=== PATIENT | male | born 1970 | race African-American/Black ===

== ENCOUNTER 2020-06-10 13:16 | Observation (INO) ==
[2020-06-10 15:45] LABS: Bilirubin,Urine Negative (Negative); Blood, Urine Small mg/dL (Negative); Glucose,Urine (UA) >=500 mg/dL (Negative); Ketones,Urine Negative (Negative); Nitrite,Urine Negative (Negative); Protein,Urine Negative; Urine Appearance CLEAR (Clear); Urine Color Straw (Yellow); Urine Specific Gravity 1.021 (1.001-1.035); Urine Urobilinogen < 2.0 EU/DL (0.2-1.0); WBC,Urine 1 /HPF (0-6)
[2020-06-10 16:18] LABS: Basophils # 0.1 10*3/uL (0.0-0.2); Basophils % 0.5 % (0.0-0.8); Eosinophils # 0.1 10*3/uL (0.0-0.87); Eosinophils % 0.6 % (0.00-10.9); Hematocrit 39.6 VOL% (42.0-52.0); Hemoglobin 12.8 GM/DL (14.0-18.0); Immature Granulocytes % 4.6 %; Lymphocytes # 0.7 10*3/uL (1.4-4.0); Lymphocytes % 6.7 % (21.2-54.2); Mean Corpuscular HGB Conc 32.3 GM/DL (32-36); Mean Corpuscular Volume 84.8 FL (87-102); Mean Platelet Volume 12.7 FL (9.6-12.0); Monocytes % 10.8 % (1.7-12.7); Neutrophils % 76.8 % (38.7-73.9); Platelet Count 180 T/CUMM (130-400); Red Blood Count 4.67 MC/CUMM (3.8-5.5); Red Cell Distribution Width 13.1 % (9.3-17.3)
[2020-06-10 16:27] LABS: Alanine Aminotransferase 16 U/L (16-61); Albumin 3.9 G/DL (3.4-5.0); Alkaline Phosphatase 108 U/L (45-117); Aspartate Amino Transferase 10 U/L (0-37); Bilirubin,Total < 0.39 MG/DL (0.2-1.0); Blood Urea Nitrogen 49 MG/DL (7-18); Calcium 10.1 MG/DL (8.5-10.1); Estimated Glom Filtration Rate 28 ML/MIN; Glucose 373 MG/DL (74-106); Osmolality,Calculated 280.4 MOS/KG (273-304); Total Protein 7.3 G/DL (6.4-8.3)
[2020-06-10] MEDS ORDERED: SODIUM CHLORIDE 0.9% 1,000 ML IV STA (16:56)
[2020-06-10] MEDS ORDERED: DEXTROSE 50% 25 GM/50 ML VIAL IV PRN (17:21)
[2020-06-10] MEDS ORDERED: GLUCAGON 1 MG VIAL IM PRN (17:21)
[2020-06-10] MEDS ORDERED: ZOLPIDEM 5 MG TABLET PO PRN (21:00)
[2020-06-10] MEDS: SODIUM CHLORIDE 0.9% 1,000 ML IV SCH (21:23)
[2020-06-10] MEDS: MYCOPHENOLATE MOFETIL 250 MG CAPSULE PO SCH (21:24)
[2020-06-10] MEDS: TACROLIMUS 0.5 MG CAPSULE PO SCH (21:24)
[2020-06-10] MEDS: INSULIN GLARGINE 100 UNIT/ML SUBCUT SCH (21:26)
[2020-06-10] MEDS: INSULIN LISPRO 100 UNIT/ML SUBCUT SCH (21:26)
[2020-06-11 05:45] LABS: Basophils % 0.4 % (0.0-0.8); Eosinophils # 0.1 10*3/uL (0.0-0.87); Hemoglobin 11.7 GM/DL (14.0-18.0); Immature Granulocytes % 2.8 %; Immature Granulocytes Absolute 0.22 #; Lymphocytes # 0.7 10*3/uL (1.4-4.0); Lymphocytes % 8.5 % (21.2-54.2); Mean Corpuscular HGB Conc 31.6 GM/DL (32-36); Mean Corpuscular Volume 86.4 FL (87-102); Mean Platelet Volume 12.8 FL (9.6-12.0); Monocytes % 10.6 % (1.7-12.7); NRBC # 0.02 10*3/uL; Neutrophils % 76.7 % (38.7-73.9); Platelet Count 161 T/CUMM (130-400); Red Blood Count 4.28 MC/CUMM (3.8-5.5); Red Cell Distribution Width 13.2 % (9.3-17.3); White Blood Count 7.9 T/CUMM (4-12)
[2020-06-11 06:21] LABS: Albumin 3.1 G/DL (3.4-5.0); Bilirubin,Total 1.1 MG/DL (0.2-1.0); Calcium 9.5 MG/DL (8.5-10.1); Osmolality,Calculated 282.2 MOS/KG (273-304); Total Protein 6.5 G/DL (6.4-8.3)
[2020-06-11] MEDS: SODIUM BICARBONATE 650 MG TABLET PO SCH (08:17)
[2020-06-11] MEDS: predniSONE 10 MG TABLET PO SCH (08:17)
[2020-06-11] MEDS: ATORVASTATIN 10 MG TABLET PO SCH (08:17)
[2020-06-11] MEDS: MYCOPHENOLATE MOFETIL 250 MG CAPSULE PO SCH ×2 (08:17→21:18)
[2020-06-11] MEDS: TACROLIMUS 0.5 MG CAPSULE PO SCH ×2 (08:17→21:17)
[2020-06-11] MEDS: SODIUM CHLORIDE 0.9% 1,000 ML IV SCH ×3 (08:18→21:20)
[2020-06-11] MEDS: INSULIN LISPRO 100 UNIT/ML SUBCUT SCH ×9 (08:18→21:48)
[2020-06-11] MEDS: INSULIN GLARGINE 100 UNIT/ML SUBCUT SCH (21:49)
[2020-06-12 05:44] LABS: Basophils % 0.2 % (0.0-0.8); Eosinophils % 0.3 % (0.00-10.9); Hematocrit 34.8 VOL% (42.0-52.0); Hemoglobin 10.9 GM/DL (14.0-18.0); Immature Granulocytes % 1.5 %; Immature Granulocytes Absolute 0.15 #; Lymphocytes # 0.7 10*3/uL (1.4-4.0); Lymphocytes % 7.3 % (21.2-54.2); Mean Corpuscular HGB Conc 31.3 GM/DL (32-36); Mean Corpuscular Volume 87.7 FL (87-102); Mean Platelet Volume 12.5 FL (9.6-12.0); Monocytes % 8.7 % (1.7-12.7); Platelet Count 152 T/CUMM (130-400); Red Blood Count 3.97 MC/CUMM (3.8-5.5); Red Cell Distribution Width 13.5 % (9.3-17.3); White Blood Count 9.7 T/CUMM (4-12)
[2020-06-12 06:01] LABS: Calcium 8.7 MG/DL (8.5-10.1); Osmolality,Calculated 284.7 MOS/KG (273-304)
[2020-06-12] MEDS: MYCOPHENOLATE MOFETIL 250 MG CAPSULE PO SCH (10:10)
[2020-06-12] MEDS: predniSONE 10 MG TABLET PO SCH (10:11)
[2020-06-12] MEDS: TACROLIMUS 0.5 MG CAPSULE PO SCH (10:11)
[2020-06-12] MEDS: SODIUM BICARBONATE 650 MG TABLET PO SCH (10:11)
[2020-06-12] MEDS: ATORVASTATIN 10 MG TABLET PO SCH (10:11)
[2020-06-12] MEDS: INSULIN LISPRO 100 UNIT/ML SUBCUT SCH ×2 (10:22)
[2020-06-12 11:12] VITALS: BP 138/83
== END 2020-06-12 11:53 | disposition home or self-care (01) ==
LOC: N.ED 13:16 → OBSVTOIN 17:30 → INTOOBSV 17:30 → N.EDINP 17:30 → N.3E 17:57
PROVIDERS: ADMIT Internal Medicine; ATTEND Internal Medicine

== ENCOUNTER 2020-08-06 14:42 | Inpatient (IN) ==
[2020-08-06] MEDS ORDERED: SODIUM CHLORIDE 0.9% 1,000 ML IV STA (15:45)
[2020-08-06] MEDS ORDERED: ONDANSETRON 4 MG/2 ML VIAL IV STA ×2 (15:45→17:35)
[2020-08-06 16:29] LABS: Basophils % 0.1 % (0.0-0.8); Hemoglobin 12.3 GM/DL (14.0-18.0); Immature Granulocytes % 0.7 %; Immature Granulocytes Absolute 0.12 #; Lymphocytes # 0.2 10*3/uL (1.4-4.0); Mean Corpuscular HGB Conc 32.4 GM/DL (32-36); Mean Corpuscular Volume 85.4 FL (87-102); Mean Platelet Volume 12.3 FL (9.6-12.0); Monocytes % 2.6 % (1.7-12.7); Neutrophils % 95.6 % (38.7-73.9); Platelet Count 251 T/CUMM (130-400); Red Blood Count 4.45 MC/CUMM (3.8-5.5); Red Cell Distribution Width 15.2 % (9.3-17.3); White Blood Count 16.8 T/CUMM (4-12)
[2020-08-06 16:42] LABS: Alanine Aminotransferase < 9 U/L (16-61); Albumin 3.9 G/DL (3.4-5.0); Alkaline Phosphatase 142 U/L (45-117); Aspartate Amino Transferase 5 U/L (0-37); Bilirubin,Total < 0.39 MG/DL (0.2-1.0); Blood Urea Nitrogen 119 MG/DL (7-18); Calcium 8.2 MG/DL (8.5-10.1); Estimated Glom Filtration Rate 7 ML/MIN; Glucose 362 MG/DL (74-106); Osmolality,Calculated 320.2 MOS/KG (273-304); Total Protein 8.2 G/DL (6.4-8.3)
[2020-08-06] MEDS ORDERED: GLUCAGON 1 MG VIAL IM PRN (17:03)
[2020-08-06] MEDS ORDERED: DEXTROSE 50% 25 GM/50 ML VIAL IV PRN (17:03)
[2020-08-06] MEDS ORDERED: PROCHLORPERAZINE 25 MG SUPP RECTAL STA (17:20)
[2020-08-06] MEDS ORDERED: PROMETHAZINE INJ 25 MG in SODIUM CHLORIDE 0.9% 50 ML IV STA (17:34)
[2020-08-06 17:59] LABS: Band Neutrophils 3 % (0-10); Lymphocytes 3 % (20-55); Platelet Estimate Normal; Segmented Neutrophils 90 % (50-85); Total Cells Counted 100
[2020-08-06] MEDS: INSULIN LISPRO 100 UNIT/ML SUBCUT SCH (19:42)
[2020-08-06] MEDS: SODIUM CHLORIDE 23.4% CONC INJ 38.5 MEQ, SODIUM BICARB INJ 100 MEQ in STERILE WATER INJ... IV SCH (19:43)
[2020-08-06] MEDS: MORPHINE 4 MG/1 ML VIAL IV PRN (21:38)
[2020-08-06] MEDS ORDERED: PROMETHAZINE INJ 25 MG in SODIUM CHLORIDE 0.9% 50 ML IV PRN (23:00)
[2020-08-07] MEDS: INSULIN LISPRO 100 UNIT/ML SUBCUT SCH ×4 (00:36→18:02)
[2020-08-07] MEDS: MORPHINE 4 MG/1 ML VIAL IV PRN ×2 (00:40→03:43)
[2020-08-07] MEDS ORDERED: MORPHINE 4 MG/1 ML VIAL ONE (03:31)
[2020-08-07] MEDS: SODIUM CHLORIDE 23.4% CONC INJ 38.5 MEQ, SODIUM BICARB INJ 100 MEQ in STERILE WATER INJ... IV SCH ×3 (04:00→19:22)
[2020-08-07 05:43] LABS: Basophils % 0.1 % (0.0-0.8); Eosinophils % 0.1 % (0.00-10.9); Hematocrit 35.5 VOL% (42.0-52.0); Hemoglobin 11.4 GM/DL (14.0-18.0); Immature Granulocytes % 0.7 %; Lymphocytes # 0.3 10*3/uL (1.4-4.0); Lymphocytes % 1.7 % (21.2-54.2); Mean Corpuscular HGB Conc 32.1 GM/DL (32-36); Mean Corpuscular Volume 85.3 FL (87-102); Mean Platelet Volume 12.5 FL (9.6-12.0); Monocytes % 8.2 % (1.7-12.7); Neutrophils % 89.2 % (38.7-73.9); Platelet Count 201 T/CUMM (130-400); Red Blood Count 4.16 MC/CUMM (3.8-5.5)
[2020-08-07 06:07] LABS: Alanine Aminotransferase < 6 U/L (16-61); Albumin 3.3 G/DL (3.4-5.0); Alkaline Phosphatase 118 U/L (45-117); Aspartate Amino Transferase 5 U/L (0-37); Blood Urea Nitrogen 117 MG/DL (7-18); Calcium 7.8 MG/DL (8.5-10.1); Estimated Glom Filtration Rate 8 ML/MIN; Glucose 214 MG/DL (74-106); Osmolality,Calculated 315.8 MOS/KG (273-304); Total Protein 7.1 G/DL (6.4-8.3)
[2020-08-07 06:10] LABS: Burr Cells Slight; Ovalocytes Slight; Platelet Estimate Adequate; Segmented Neutrophils 94 % (50-85); Total Cells Counted 100
[2020-08-07] MEDS ORDERED: MAGNESIUM SULF RIDER 2 GM in PREMIX 1 EACH IV ONE (06:25)
[2020-08-07] MEDS ORDERED: hydrALAZINE 20 MG/1 ML VIAL IV PRN (08:04)
[2020-08-07] MEDS ORDERED: PANTOPRAZOLE 40 MG VIAL IV SCH (09:00)
[2020-08-07 12:27] LABS: Bilirubin,Urine Negative (Negative); Blood, Urine Negative (Negative); Glucose,Urine (UA) 50 mg/dL (Negative); Hyaline Casts,Urine 7 /LPF (0-3); Ketones,Urine Negative (Negative); Mucus,Urine Occasional /LPF (Occasional); Nitrite,Urine Negative (Negative); Protein,Urine Negative; RBC,Urine 1 /HPF (0-4); Squamous Epithelial Cell,Urine Occasional /HPF (0-10); Urine Appearance CLEAR (Clear); Urine Color Yellow (Yellow); Urine Specific Gravity 1.015 (1.001-1.035); Urine Urobilinogen < 2.0 EU/DL (0.2-1.0); WBC,Urine 1 /HPF (0-6)
[2020-08-07] MEDS ORDERED: MENTHOL/ZINC OXIDE OINT 71 GM JAR TOP SCH (13:00)
[2020-08-07 16:44] VITALS: BP 118/74
[2020-08-07 21:01] LABS: Bacteria,Urine Occasional /HPF (Few); Bilirubin,Urine Negative (Negative); Blood, Urine Small mg/dL (Negative); Glucose,Urine (UA) Negative (Negative); Hyaline Casts,Urine 16 /LPF (0-3); Ketones,Urine Negative (Negative); Mucus,Urine Occasional /LPF (Occasional); Nitrite,Urine Negative (Negative); Protein,Urine Negative; RBC,Urine <1 /HPF (0-4); Squamous Epithelial Cell,Urine Occasional /HPF (0-10); Urine Appearance CLEAR (Clear); Urine Color Yellow (Yellow); Urine Specific Gravity 1.015 (1.001-1.035); Urine Urobilinogen < 2.0 EU/DL (0.2-1.0); WBC,Urine 1 /HPF (0-6)
[2020-08-08] MEDS ORDERED: PANTOPRAZOLE 40 MG VIAL IV SCH (09:00)
[2020-08-09 06:46] LABS: Chlamydia trachomatis Not Detected (NotDetected); Class A beta Lactamase DETECTED (NotDetected); Clostridium difficile A & B Not Detected (NotDetected); E coli (ETEC) O157 Not Detected (NotDetected); Enterovirus D Not Detected (NotDetected); Pseudomonas aeruginosa Not Detected (NotDetected); Rotavirus A & B Not Detected (NotDetected); Salmonella enterica Not Detected (NotDetected); Yersinia enterocolitica Not Detected (NotDetected); mecA-Methicillin Resistance Ge Not Detected (NotDetected)
== END 2020-08-07 19:56 | disposition hospice, home (50) | DRG 641 ==
LOC: N.ED 14:42 → N.EDINP 17:03 → N.TELES 21:15
PROVIDERS: ADMIT Internal Medicine; ATTEND Internal Medicine

== ENCOUNTER 2020-11-24 08:18 | Inpatient (IN) ==
[2020-11-24] MEDS ORDERED: ONDANSETRON 4 MG/2 ML VIAL IV STA (09:08)
[2020-11-24] MEDS ORDERED: SODIUM CHLORIDE 0.9% 1,000 ML IV STA (09:08)
[2020-11-24 09:41] LABS: Basophils % 0.2 % (0.0-0.8); Eosinophils % 0.5 % (0.00-10.9); Hematocrit 39.2 VOL% (42.0-52.0); Hemoglobin 12.3 GM/DL (14.0-18.0); Immature Granulocytes Absolute 0.17 #; Lymphocytes # 0.3 10*3/uL (1.4-4.0); Lymphocytes % 2.9 % (21.2-54.2); Mean Corpuscular HGB Conc 31.4 GM/DL (32-36); Mean Corpuscular Volume 86.2 FL (87-102); Mean Platelet Volume 13.5 FL (9.6-12.0); Monocytes % 9.9 % (1.7-12.7); NRBC # 0.02 10*3/uL; Neutrophils % 84.5 % (38.7-73.9); Platelet Count 171 T/CUMM (130-400); Red Blood Count 4.55 MC/CUMM (3.8-5.5); Red Cell Distribution Width 14.6 % (9.3-17.3); White Blood Count 8.6 T/CUMM (4-12)
[2020-11-24 09:54] LABS: Alanine Aminotransferase 17 U/L (16-61); Alkaline Phosphatase 162 U/L (45-117); Aspartate Amino Transferase 4 U/L (0-37); Bilirubin,Total < 0.39 MG/DL (0.2-1.0); Blood Urea Nitrogen 83 MG/DL (7-18); Calcium 8.4 MG/DL (8.5-10.1); Carbon Dioxide 15 MMOL/L (21-32); Estimated Glom Filtration Rate 7 ML/MIN; Osmolality,Calculated 303.5 MOS/KG (273-304); Potassium 5.1 MMOL/L (3.5-5.1); Total Protein 7.6 G/DL (6.4-8.3)
[2020-11-24 09:57] LABS: Glucose 844 MG/DL (74-106); Sodium 118 MMOL/L (136-145)
[2020-11-24 09:58] LABS: Band Neutrophils 3 % (0-10); Eosinophils 1 % (0-10); Lymphocytes 2 % (20-55); Metamyelocytes 1 %; Myelocytes 1 %; Nucleated Red Blood Cells 1 (0-5); Platelet Estimate Normal; Segmented Neutrophils 84 % (50-85); Total Cells Counted 100
[2020-11-24 09:59] LABS: Anisocytosis 2+; Burr Cells 1+; Macrocytosis 1+
[2020-11-24 10:03] LABS: ABG Base Excess -14.9 MMOL/L (-2.5-2.5); ABG HCO3 13.2 MMOL/L (20-26); ABG Oxygen Saturation 98.6 % (95-100); ABG PCO2 28.6 MM HG (35-48); ABG PH 7.223 (7.35-7.45); ABG TCO2 10.8 MMOL/L (23-27); Allen Test Positive; Pt O2 Delivery Device Room Air
[2020-11-24] MEDS ORDERED: INSULIN REGULAR 100 UNIT/ML IV ONE (10:08)
[2020-11-24 10:15] LABS: Amorphous Crystals,Urine Few /HPF (Few); Bilirubin,Urine Negative (Negative); Blood, Urine Small mg/dL (Negative); Glucose,Urine (UA) >=500 mg/dL (Negative); Ketones,Urine Negative (Negative); Mucus,Urine Occasional /LPF (Occasional); Nitrite,Urine Negative (Negative); Protein,Urine Negative; RBC,Urine 1 /HPF (0-4); Squamous Epithelial Cell,Urine Occasional /HPF (0-10); Urine Appearance CLEAR (Clear); Urine Color Yellow (Yellow); Urine Specific Gravity 1.015 (1.001-1.035); Urine Urobilinogen < 2.0 EU/DL (0.2-1.0); WBC,Urine <1 /HPF (0-6)
[2020-11-24] MEDS ORDERED: ONDANSETRON 4 MG/2 ML VIAL IV PRN (10:28)
[2020-11-24] MEDS ORDERED: SODIUM BICARB INJ 100 MEQ in STERILE WATER INJ 400 ML IV PRN (10:31)
[2020-11-24] MEDS ORDERED: MAGNESIUM SULF RIDER 4 GM in PREMIX 1 EACH IV PRN (10:31)
[2020-11-24] MEDS ORDERED: SODIUM PHOSPHATE IV PRN (10:31)
[2020-11-24] MEDS ORDERED: POTASSIUM CHLORIDE RIDER 10 MEQ in PREMIX 1 EACH IV PRN (10:31)
[2020-11-24] MEDS ORDERED: DEXTROSE 50% 25 GM/50 ML VIAL IV PRN (10:31)
[2020-11-24] MEDS ORDERED: SODIUM CHLORIDE 0.9% IV PRN (10:31)
[2020-11-24] MEDS ORDERED: LACTATED RINGERS 2,000 ML IV ONE (10:31)
[2020-11-24 13:00] LABS: Calcium 7.8 MG/DL (8.5-10.1); Osmolality,Calculated 302.5 MOS/KG (273-304); Potassium 4.5 MMOL/L (3.5-5.1)
[2020-11-24 13:29] VITALS: BP 133/78
[2020-11-24] MEDS ORDERED: INFLUENZA VIRUS VACCINE 0.5 ML SYRINGE IM ONE (13:32)
[2020-11-24] MEDS: INSULIN REGULAR DRIP 100 ML IV SCH (13:35)
[2020-11-24] MEDS: SODIUM CHLORIDE 0.9% 1,000 ML IV SCH ×2 (14:29→16:32)
[2020-11-24] MEDS ORDERED: LOPERAMIDE 2 MG CAPSULE PO PRN (14:59)
[2020-11-24] MEDS ORDERED: ZALEPLON 5 MG CAPSULE PO PRN (15:04)
[2020-11-24] MEDS ORDERED: SODIUM CHLORIDE 0.9% 1,000 ML IV SCH (15:32)
[2020-11-24] MEDS: MYCOPHENOLATE 180 MG TABLET PO SCH (21:08)
[2020-11-24] MEDS: CALCIUM CARBONATE CHEW 500 MG TABLET PO SCH (21:09)
[2020-11-24] MEDS: TACROLIMUS 0.5 MG CAPSULE PO SCH (21:10)
[2020-11-24] MEDS: FLUTICASONE 50 MCG NASAL SPRAY 16 GM BOTTLE BOTH NARES SCH (21:20)
[2020-11-24 21:26] LABS: Potassium 3.5 MMOL/L (3.5-5.1)
[2020-11-24 21:29] LABS: Calcium 7.3 MG/DL (8.5-10.1); Osmolality,Calculated 301.7 MOS/KG (273-304)
[2020-11-24] MEDS: DEXT 5% NACL 0.45% KCL 20 MEQ 20 MEQ/1,000 ML BAG IV SCH (22:15)
[2020-11-25 02:28] LABS: Basophils % 0.1 % (0.0-0.8); Eosinophils % 0.5 % (0.00-10.9); Hematocrit 32.8 VOL% (42.0-52.0); Hemoglobin 10.1 GM/DL (14.0-18.0); Immature Granulocytes % 2.1 %; Immature Granulocytes Absolute 0.16 #; Lymphocytes # 0.3 10*3/uL (1.4-4.0); Lymphocytes % 3.8 % (21.2-54.2); Mean Corpuscular HGB Conc 30.8 GM/DL (32-36); Mean Platelet Volume 12.9 FL (9.6-12.0); Monocytes % 13.4 % (1.7-12.7); Neutrophils % 80.1 % (38.7-73.9); Platelet Count 159 T/CUMM (130-400); Red Blood Count 3.86 MC/CUMM (3.8-5.5); Red Cell Distribution Width 13.7 % (9.3-17.3); White Blood Count 7.7 T/CUMM (4-12)
[2020-11-25 02:56] LABS: Calcium 7.7 MG/DL (8.5-10.1); Osmolality,Calculated 289.1 MOS/KG (273-304); Potassium 3.8 MMOL/L (3.5-5.1)
[2020-11-25] MEDS: DEXT 5% NACL 0.45% KCL 20 MEQ 20 MEQ/1,000 ML BAG IV SCH (03:37)
[2020-11-25] MEDS: LOPERAMIDE 1 MG/7.5 ML 30 ML BOTTLE PO PRN ×3 (03:53→23:40)
[2020-11-25] MEDS: MAGNESIUM SULF RIDER 2 GM in PREMIX 1 EACH IV PRN ×2 (04:21→07:02)
[2020-11-25 04:28] LABS: Acanthocytes Few; Band Neutrophils 2 % (0-10); Hypochromasia 1+; Lymphocytes 3 % (20-55); Segmented Neutrophils 87 % (50-85); Total Cells Counted 100
[2020-11-25 04:29] LABS: Anisocytosis 1+; Burr Cells 1+; Macrocytosis 1+; Platelet Estimate Adequate
[2020-11-25] MEDS: DEXT 5% NACL 0.9% KCL 20 MEQ 20 MEQ/1,000 ML BAG IV SCH ×3 (05:11→18:26)
[2020-11-25 08:30] LABS: Calcium 7.4 MG/DL (8.5-10.1); Osmolality,Calculated 300.7 MOS/KG (273-304); Potassium 3.8 MMOL/L (3.5-5.1)
[2020-11-25] MEDS: MYCOPHENOLATE 180 MG TABLET PO SCH ×2 (09:02→20:41)
[2020-11-25] MEDS: predniSONE 10 MG TABLET PO SCH (09:03)
[2020-11-25] MEDS: PANTOPRAZOLE 40 MG TABLET PO SCH (09:03)
[2020-11-25] MEDS: SODIUM BICARBONATE 650 MG TABLET PO SCH (09:03)
[2020-11-25] MEDS: CALCIUM CARBONATE CHEW 500 MG TABLET PO SCH ×2 (09:03→20:47)
[2020-11-25] MEDS: TACROLIMUS 0.5 MG CAPSULE PO SCH ×2 (09:03→20:40)
[2020-11-25] MEDS: ATORVASTATIN 10 MG TABLET PO SCH (09:03)
[2020-11-25] MEDS: ASPIRIN EC 81 MG TABLET PO SCH (09:03)
[2020-11-25] MEDS: FLUTICASONE 50 MCG NASAL SPRAY 16 GM BOTTLE BOTH NARES SCH ×2 (09:04→21:02)
[2020-11-25] MEDS: SODIUM CHLOR 0.9% KCL 20 MEQ 20 MEQ/1,000 ML BAG IV SCH ×2 (09:06→10:21)
[2020-11-25] MEDS: INSULIN REGULAR DRIP 100 ML IV SCH (10:23)
[2020-11-25] MEDS: ENOXAPARIN 30 MG/0.3 ML SYRINGE SUBCUT SCH (10:27)
[2020-11-25] MEDS: DEXTROSE 50% 25 GM/50 ML VIAL IV PRN (11:06)
[2020-11-26] MEDS: INSULIN REGULAR DRIP 100 ML IV SCH (04:28)
[2020-11-26 04:34] LABS: ABG Base Excess -12.6 MMOL/L (-2.5-2.5); ABG HCO3 14.6 MMOL/L (20-26); ABG PCO2 26.7 MM HG (35-48); ABG PH 7.291 (7.35-7.45); ABG TCO2 11.9 MMOL/L (23-27)
[2020-11-26 05:05] LABS: Eosinophils % 0.5 % (0.00-10.9); Hematocrit 28.8 VOL% (42.0-52.0); Hemoglobin 9.1 GM/DL (14.0-18.0); Immature Granulocytes % 2.3 %; Immature Granulocytes Absolute 0.15 #; Lymphocytes # 0.3 10*3/uL (1.4-4.0); Mean Corpuscular HGB Conc 31.6 GM/DL (32-36); Mean Platelet Volume 12.3 FL (9.6-12.0); Monocytes % 11.7 % (1.7-12.7); Neutrophils % 80.5 % (38.7-73.9); Platelet Count 153 T/CUMM (130-400); Red Blood Count 3.39 MC/CUMM (3.8-5.5); Red Cell Distribution Width 14.2 % (9.3-17.3); White Blood Count 6.7 T/CUMM (4-12)
[2020-11-26] MEDS: DEXT 5% NACL 0.9% KCL 20 MEQ 20 MEQ/1,000 ML BAG IV SCH (05:12)
[2020-11-26 05:42] LABS: Albumin 2.3 G/DL (3.4-5.0); Bilirubin,Total 0.9 MG/DL (0.2-1.0); Calcium 7.8 MG/DL (8.5-10.1); Osmolality,Calculated 295.3 MOS/KG (273-304); Potassium 4.3 MMOL/L (3.5-5.1)
[2020-11-26 06:24] LABS: Calcium 7.7 MG/DL (8.5-10.1); Osmolality,Calculated 297.1 MOS/KG (273-304); Potassium 4.3 MMOL/L (3.5-5.1)
[2020-11-26] MEDS: DEXTROSE 50% 25 GM/50 ML VIAL IV PRN (06:30)
[2020-11-26] MEDS: PANTOPRAZOLE 40 MG TABLET PO SCH (09:09)
[2020-11-26] MEDS: TACROLIMUS 0.5 MG CAPSULE PO SCH ×2 (09:09→21:12)
[2020-11-26] MEDS: SODIUM BICARBONATE 650 MG TABLET PO SCH (09:09)
[2020-11-26] MEDS: CALCIUM CARBONATE CHEW 500 MG TABLET PO SCH ×2 (09:10→21:11)
[2020-11-26] MEDS: ATORVASTATIN 10 MG TABLET PO SCH (09:10)
[2020-11-26] MEDS: MYCOPHENOLATE 180 MG TABLET PO SCH ×2 (09:10→21:13)
[2020-11-26] MEDS: predniSONE 10 MG TABLET PO SCH (09:10)
[2020-11-26] MEDS: ASPIRIN EC 81 MG TABLET PO SCH (09:10)
[2020-11-26] MEDS: FLUTICASONE 50 MCG NASAL SPRAY 16 GM BOTTLE BOTH NARES SCH ×2 (09:11→21:13)
[2020-11-26] MEDS ORDERED: POTASSIUM PHOSPHATE 30 MMOL in SODIUM CHLORIDE 0.9% 250 ML IV ONE (10:00)
[2020-11-26] MEDS ORDERED: POTASSIUM PHOS/SOD PHOS POWDER 250 MG PACK PO ONE (11:23)
[2020-11-26] MEDS: ENOXAPARIN 30 MG/0.3 ML SYRINGE SUBCUT SCH (11:38)
[2020-11-26] MEDS: INSULIN GLARGINE 100 UNIT/ML SUBCUT SCH (11:39)
[2020-11-26] MEDS: INSULIN LISPRO 100 UNIT/ML SUBCUT SCH ×2 (12:20→17:20)
[2020-11-26] MEDS: DESITIN 4OZ/NYSTATIN 15 GRAM MIXTURE PASTE TOP SCH ×2 (13:43→22:19)
[2020-11-26] MEDS ORDERED: INSULIN GLARGINE 100 UNIT/ML SUBCUT SCH (21:00)
[2020-11-27] MEDS ORDERED: GLUCOSE GEL 15 GM TUBE PO ONE ×3 (01:02→01:26)
[2020-11-27] MEDS: LOPERAMIDE 1 MG/7.5 ML 30 ML BOTTLE PO PRN (03:20)
[2020-11-27 04:48] LABS: Basophils % 0.2 % (0.0-0.8); Eosinophils % 0.5 % (0.00-10.9); Hematocrit 28.6 VOL% (42.0-52.0); Hemoglobin 8.8 GM/DL (14.0-18.0); Immature Granulocytes Absolute 0.13 #; Lymphocytes # 0.2 10*3/uL (1.4-4.0); Lymphocytes % 3.5 % (21.2-54.2); Mean Corpuscular HGB Conc 30.8 GM/DL (32-36); Mean Corpuscular Volume 85.9 FL (87-102); Mean Platelet Volume 12.1 FL (9.6-12.0); Monocytes % 12.9 % (1.7-12.7); Neutrophils % 80.9 % (38.7-73.9); Platelet Count 157 T/CUMM (130-400); Red Blood Count 3.33 MC/CUMM (3.8-5.5); Red Cell Distribution Width 14.8 % (9.3-17.3); White Blood Count 6.5 T/CUMM (4-12)
[2020-11-27 05:11] LABS: Calcium 8.3 MG/DL (8.5-10.1); Osmolality,Calculated 292.4 MOS/KG (273-304); Potassium 5.1 MMOL/L (3.5-5.1)
[2020-11-27 05:12] LABS: Band Neutrophils 1 % (0-10); Hypochromasia 2+; Lymphocytes 2 % (20-55); Ovalocytes Slight; Platelet Estimate Adequate; Segmented Neutrophils 87 % (50-85); Total Cells Counted 100
[2020-11-27 05:13] LABS: Burr Cells Slight
[2020-11-27] MEDS: TACROLIMUS 0.5 MG CAPSULE PO SCH (08:00)
[2020-11-27] MEDS: MYCOPHENOLATE 180 MG TABLET PO SCH (08:01)
[2020-11-27] MEDS: PANTOPRAZOLE 40 MG TABLET PO SCH (08:01)
[2020-11-27] MEDS: ATORVASTATIN 10 MG TABLET PO SCH (08:01)
[2020-11-27] MEDS: predniSONE 10 MG TABLET PO SCH (08:01)
[2020-11-27] MEDS: CALCIUM CARBONATE CHEW 500 MG TABLET PO SCH (08:01)
[2020-11-27] MEDS: SODIUM BICARBONATE 650 MG TABLET PO SCH (08:01)
[2020-11-27] MEDS: ASPIRIN EC 81 MG TABLET PO SCH (08:01)
[2020-11-27] MEDS: INSULIN LISPRO 100 UNIT/ML SUBCUT SCH ×2 (08:02→11:27)
[2020-11-27] MEDS: FLUTICASONE 50 MCG NASAL SPRAY 16 GM BOTTLE BOTH NARES SCH (08:50)
[2020-11-27] MEDS: DESITIN 4OZ/NYSTATIN 15 GRAM MIXTURE PASTE TOP SCH (08:50)
[2020-11-27] MEDS: INSULIN GLARGINE 100 UNIT/ML SUBCUT SCH (09:08)
[2020-11-27] MEDS: ENOXAPARIN 30 MG/0.3 ML SYRINGE SUBCUT SCH (11:07)
[2020-11-27] MEDS ORDERED: INSULIN LISPRO 100 UNIT/ML SUBCUT SCH (12:30)
[2020-11-27] MEDS ORDERED: INSULIN GLARGINE 100 UNIT/ML SUBCUT SCH ×2 (12:30→21:00)
[2020-11-27] MEDS ORDERED: ACETAMINOPHEN 325 MG TABLET PO ONE (16:58)
[2020-11-27] MEDS ORDERED: ACETAMINOPHEN 325 MG TABLET ONE (16:59)
[2020-11-29] MEDS ORDERED: ERGOCALCIFEROL 50,000 UNIT CAPSULE PO SCH (09:00)
== END 2020-11-27 16:41 | disposition home or self-care (01) | DRG 698 ==
LOC: N.ED 08:18 → N.EDINP 10:28 → SUATTDRO 10:28 → N.ICU 13:05
PROVIDERS: ADMIT Family Medicine; ATTEND Internal Medicine

== ENCOUNTER 2020-12-25 08:32 | Inpatient (IN) ==
[2020-12-25] MEDS ORDERED: SODIUM CHLORIDE 0.9% 1,000 ML IV STA (09:01)
[2020-12-25 09:54] LABS: Basophils % 0.2 % (0.0-0.8); Eosinophils % 0.2 % (0.00-10.9); Lymphocytes % 1.3 % (21.2-54.2); Red Cell Distribution Width 15.9 % (9.3-17.3)
[2020-12-25 10:00] LABS: Hematocrit 37.2 VOL% (42.0-52.0); Hemoglobin 11.4 GM/DL (14.0-18.0); Immature Granulocytes % 1.7 %; Immature Granulocytes Absolute 0.18 #; Lymphocytes # 0.1 10*3/uL (1.4-4.0); Mean Corpuscular HGB Conc 30.6 GM/DL (32-36); Mean Corpuscular Volume 87.3 FL (87-102); Monocytes % 8.4 % (1.7-12.7); Neutrophils % 88.2 % (38.7-73.9); Platelet Count 143 T/CUMM (130-400); Red Blood Count 4.26 MC/CUMM (3.8-5.5); White Blood Count 10.3 T/CUMM (4-12)
[2020-12-25 10:14] LABS: Eosinophils 1 % (0-10); Lymphocytes 2 % (20-55); Platelet Estimate Adequate; Segmented Neutrophils 88 % (50-85); Total Cells Counted 100
[2020-12-25 10:15] LABS: Acanthocytes Few
[2020-12-25 10:16] LABS: Alanine Aminotransferase 13 U/L (16-61); Albumin 3.9 G/DL (3.4-5.0); Alkaline Phosphatase 120 U/L (45-117); Aspartate Amino Transferase 6 U/L (0-37); Bilirubin,Total < 0.39 MG/DL (0.2-1.0); Blood Urea Nitrogen 88 MG/DL (7-18); Calcium 8.3 MG/DL (8.5-10.1); Carbon Dioxide 13 MMOL/L (21-32); Estimated Glom Filtration Rate 5 ML/MIN; Osmolality,Calculated 311.1 MOS/KG (273-304); Potassium 5.4 MMOL/L (3.5-5.1); Sodium 128 MMOL/L (136-145); Total Protein 7.6 G/DL (6.4-8.2)
[2020-12-25 10:28] LABS: Glucose 607 MG/DL (74-106)
[2020-12-25] MEDS ORDERED: INSULIN REGULAR 100 UNIT/ML IV ONE (10:39)
[2020-12-25] MEDS: ONDANSETRON 4 MG/2 ML VIAL IV PRN ×2 (11:08→14:37)
[2020-12-25] MEDS ORDERED: SODIUM CHLORIDE 0.9% 1,000 ML IV ONE ×2 (11:17→13:09)
[2020-12-25] MEDS ORDERED: DOCUSATE SODIUM 100 MG CAPSULE PO PRN (11:19)
[2020-12-25] MEDS ORDERED: ACETAMINOPHEN 325 MG TABLET PO PRN (11:19)
[2020-12-25] MEDS ORDERED: GLUCAGON 1 MG VIAL IM PRN ×2 (11:19→13:27)
[2020-12-25] MEDS ORDERED: DEXTROSE 50% 25 GM/50 ML VIAL IV PRN (11:19)
[2020-12-25] MEDS ORDERED: SODIUM CHLORIDE 0.9% 1,000 ML IV SCH ×2 (11:30→18:09)
[2020-12-25] MEDS ORDERED: INSULIN REGULAR 100 UNIT/ML SUBCUT SCH (11:30)
[2020-12-25] MEDS ORDERED: SIMETHICONE CHEW 125 MG TABLET PO PRN (11:44)
[2020-12-25 11:56] LABS: Risk Ratio 1.89; Thyroid Stimulating Hormone 1.42 uIU/ml (0.358-3.74); VLDL CHOLESTEROL 33.2 MG/DL
[2020-12-25] MEDS ORDERED: SODIUM BICARB INJ 100 MEQ in STERILE WATER INJ 400 ML IV PRN (13:09)
[2020-12-25] MEDS ORDERED: MAGNESIUM SULF RIDER 4 GM in PREMIX 1 EACH IV PRN (13:09)
[2020-12-25] MEDS ORDERED: SODIUM PHOSPHATE INJ 20.4 MMOL in SODIUM CHLORIDE 0.9% 250 ML IV PRN (13:09)
[2020-12-25] MEDS ORDERED: INSULIN REGULAR DRIP 100 ML IV SCH (13:30)
[2020-12-25] MEDS: DICYCLOMINE 20 MG TABLET PO SCH ×2 (13:43→21:30)
[2020-12-25] MEDS: HEPARIN 5,000 UNIT/1 ML VIAL SUBCUT SCH (13:43)
[2020-12-25 14:25] LABS: ABG Base Excess -17.4 MMOL/L (-2.5-2.5); ABG HCO3 11.4 MMOL/L (20-26); ABG Oxygen Saturation 98.2 % (95-100); ABG PCO2 24.7 MM HG (35-48)
[2020-12-25 14:27] LABS: ABG PH 7.197 (7.35-7.45)
[2020-12-25] MEDS: SODIUM CHLORIDE 0.9% 1,000 ML IV SCH ×2 (15:49→17:26)
[2020-12-25 16:00] LABS: Potassium 4.1 MMOL/L (3.5-5.1)
[2020-12-25 16:02] LABS: Calcium 7.4 MG/DL (8.5-10.1)
[2020-12-25] MEDS: MAGNESIUM SULF RIDER 2 GM in PREMIX 1 EACH IV PRN ×2 (16:43→16:44)
[2020-12-25] MEDS: DEXTROSE 5% NACL 0.9% 1,000 ML IV SCH ×2 (17:25→22:05)
[2020-12-25 17:44] LABS: Calcium 7.3 MG/DL (8.5-10.1); Osmolality,Calculated 306.5 MOS/KG (273-304); Potassium 4.2 MMOL/L (3.5-5.1)
[2020-12-25] MEDS: INSULIN GLARGINE 100 UNIT/ML SUBCUT SCH (17:58)
[2020-12-25] MEDS ORDERED: ENOXAPARIN 30 MG/0.3 ML SYRINGE SUBCUT SCH (21:00)
[2020-12-25 21:33] LABS: Calcium 6.5 MG/DL (8.5-10.1); Osmolality,Calculated 330.8 MOS/KG (273-304); Potassium 3.5 MMOL/L (3.5-5.1)
[2020-12-25 22:12] LABS: Calcium 7.5 MG/DL (8.5-10.1); Osmolality,Calculated 304.1 MOS/KG (273-304)
[2020-12-26] MEDS: HEPARIN 5,000 UNIT/1 ML VIAL SUBCUT SCH ×3 (00:53→23:36)
[2020-12-26] MEDS: ONDANSETRON 4 MG/2 ML VIAL IV PRN (01:13)
[2020-12-26 01:18] LABS: Calcium 7.1 MG/DL (8.5-10.1); Osmolality,Calculated 318.4 MOS/KG (273-304); Potassium 3.8 MMOL/L (3.5-5.1)
[2020-12-26] MEDS: DEXTROSE 5% NACL 0.9% 1,000 ML IV SCH ×5 (01:53→21:37)
[2020-12-26 02:16] LABS: Calcium 7.6 MG/DL (8.5-10.1); Osmolality,Calculated 299.8 MOS/KG (273-304); Potassium 3.9 MMOL/L (3.5-5.1)
[2020-12-26] MEDS: SODIUM CHLORIDE 0.9% 1,000 ML IV SCH ×2 (03:30→07:44)
[2020-12-26 04:58] LABS: Basophils % 0.1 % (0.0-0.8); Eosinophils % 0.3 % (0.00-10.9); Hematocrit 31.4 VOL% (42.0-52.0); Hemoglobin 9.5 GM/DL (14.0-18.0); Immature Granulocytes % 1.4 %; Immature Granulocytes Absolute 0.17 #; Lymphocytes # 0.2 10*3/uL (1.4-4.0); Lymphocytes % 1.4 % (21.2-54.2); Mean Corpuscular HGB Conc 30.3 GM/DL (32-36); Mean Corpuscular Volume 87.5 FL (87-102); Mean Platelet Volume 12.7 FL (9.6-12.0); Monocytes % 6.3 % (1.7-12.7); Neutrophils % 90.5 % (38.7-73.9); Platelet Count 158 T/CUMM (130-400); Red Blood Count 3.59 MC/CUMM (3.8-5.5); Red Cell Distribution Width 15.4 % (9.3-17.3); White Blood Count 12.6 T/CUMM (4-12)
[2020-12-26 05:28] LABS: Calcium 7.4 MG/DL (8.5-10.1); Osmolality,Calculated 306.4 MOS/KG (273-304); Potassium 4.2 MMOL/L (3.5-5.1)
[2020-12-26 05:31] LABS: Acanthocytes Few; Burr Cells Few; Hypochromasia 1+; Lymphocytes 1 % (20-55); Microcytosis 1+; Segmented Neutrophils 96 % (50-85); Target Cells Slight; Total Cells Counted 100
[2020-12-26 05:32] LABS: Platelet Estimate Adequate
[2020-12-26 05:36] LABS: Bilirubin,Total 0.8 MG/DL (0.2-1.0); Calcium 7.8 MG/DL (8.5-10.1); Osmolality,Calculated 306.4 MOS/KG (273-304); Total Protein 5.9 G/DL (6.4-8.2)
[2020-12-26] MEDS: INSULIN GLARGINE 100 UNIT/ML SUBCUT SCH ×2 (06:08→17:50)
[2020-12-26] MEDS ORDERED: SODIUM CHLORIDE 0.45% 1,000 ML IV SCH (06:09)
[2020-12-26] MEDS: MAGNESIUM SULF RIDER 2 GM in PREMIX 1 EACH IV PRN (06:23)
[2020-12-26] MEDS: DICYCLOMINE 20 MG TABLET PO SCH ×2 (08:27→21:38)
[2020-12-26] MEDS: DEXTROSE 50% 25 GM/50 ML VIAL IV PRN ×2 (08:28→08:42)
[2020-12-26 09:33] LABS: Calcium 7.7 MG/DL (8.5-10.1); Osmolality,Calculated 297.5 MOS/KG (273-304); Potassium 3.7 MMOL/L (3.5-5.1)
[2020-12-26] MEDS: INSULIN REGULAR 100 UNIT/ML SUBCUT SCH ×5 (09:41→21:56)
[2020-12-26] MEDS ORDERED: ALUMINUM/MAGNES/SIMETH MAX STR 30 ML UDCUP PO PRN (10:16)
[2020-12-26 15:41] LABS: Calcium 7.6 MG/DL (8.5-10.1); Osmolality,Calculated 303.4 MOS/KG (273-304); Potassium 4.1 MMOL/L (3.5-5.1)
[2020-12-26] MEDS ORDERED: INSULIN GLARGINE 100 UNIT/ML SUBCUT SCH (18:00)
[2020-12-26] MEDS ORDERED: MYCOPHENOLATE 180 MG TABLET PO SCH (21:00)
[2020-12-26] MEDS: TACROLIMUS 0.5 MG CAPSULE PO SCH (21:37)
[2020-12-26] MEDS: MYCOPHENOLATE 180 MG TABLET PO SCH (23:36)
[2020-12-27] MEDS: INSULIN REGULAR 100 UNIT/ML SUBCUT SCH ×6 (01:40→21:36)
[2020-12-27] MEDS: DEXTROSE 5% NACL 0.9% 1,000 ML IV SCH ×3 (04:43→22:00)
[2020-12-27] MEDS: INSULIN GLARGINE 100 UNIT/ML SUBCUT SCH (06:07)
[2020-12-27 06:26] LABS: Eosinophils # 0.1 10*3/uL (0.0-0.87); Eosinophils % 0.6 % (0.00-10.9); Hematocrit 26.7 VOL% (42.0-52.0); Hemoglobin 8.1 GM/DL (14.0-18.0); Lymphocytes # 0.3 10*3/uL (1.4-4.0); Mean Corpuscular HGB Conc 30.3 GM/DL (32-36); Mean Platelet Volume 13.3 FL (9.6-12.0); Monocytes % 9.8 % (1.7-12.7); Neutrophils % 85.6 % (38.7-73.9); Platelet Count 144 T/CUMM (130-400); Red Blood Count 3.07 MC/CUMM (3.8-5.5); Red Cell Distribution Width 15.8 % (9.3-17.3); White Blood Count 9.6 T/CUMM (4-12)
[2020-12-27 06:44] LABS: Alanine Aminotransferase < 9 U/L (16-61); Albumin 2.7 G/DL (3.4-5.0); Alkaline Phosphatase 81 U/L (45-117); Aspartate Amino Transferase 7 U/L (0-37); Blood Urea Nitrogen 52 MG/DL (7-18); Carbon Dioxide 13 MMOL/L (21-32); Estimated Glom Filtration Rate 14 ML/MIN; Glucose 82 MG/DL (74-106); Osmolality,Calculated 293.3 MOS/KG (273-304); Potassium 3.4 MMOL/L (3.5-5.1); Sodium 141 MMOL/L (136-145); Total Protein 5.3 G/DL (6.4-8.2)
[2020-12-27 06:52] LABS: Anisocytosis 2+; Band Neutrophils 2 % (0-10); Burr Cells 2+; Eosinophils 1 % (0-10); Lymphocytes 2 % (20-55); Macrocytosis 1+; Ovalocytes Few; Platelet Estimate Adequate; Poikilocytosis 1+; Segmented Neutrophils 84 % (50-85); Smudge Cells Few; Total Cells Counted 100
[2020-12-27] MEDS ORDERED: INSULIN GLARGINE 100 UNIT/ML SUBCUT SCH (07:30)
[2020-12-27] MEDS: predniSONE 10 MG TABLET PO SCH (08:59)
[2020-12-27] MEDS: ASPIRIN EC 81 MG TABLET PO SCH (08:59)
[2020-12-27] MEDS ORDERED: SODIUM BICARBONATE 650 MG TABLET PO SCH (09:00)
[2020-12-27] MEDS: TACROLIMUS 0.5 MG CAPSULE PO SCH ×2 (09:00→21:38)
[2020-12-27] MEDS: DICYCLOMINE 20 MG TABLET PO SCH ×2 (09:00→21:38)
[2020-12-27] MEDS: MYCOPHENOLATE 180 MG TABLET PO SCH ×2 (09:01→21:37)
[2020-12-27] MEDS: ATORVASTATIN 10 MG TABLET PO SCH (09:01)
[2020-12-27] MEDS: POTASSIUM CHLORIDE RIDER 10 MEQ in PREMIX 1 EACH IV PRN (09:02)
[2020-12-27] MEDS: FAMOTIDINE 20 MG TABLET PO SCH (13:00)
[2020-12-27] MEDS: HEPARIN 5,000 UNIT/1 ML VIAL SUBCUT SCH (13:00)
[2020-12-27 19:07] LABS: Bilirubin,Urine Negative (Negative); Blood, Urine Small mg/dL (Negative); Glucose,Urine (UA) >=500 mg/dL (Negative); Hyaline Casts,Urine 1 /LPF (0-3); Ketones,Urine Negative (Negative); Nitrite,Urine Negative (Negative); Protein,Urine Negative; RBC,Urine <1 /HPF (0-4); Urine Appearance CLEAR (Clear); Urine Color Yellow (Yellow); Urine Specific Gravity 1.009 (1.001-1.035); Urine Urobilinogen < 2.0 EU/DL (0.2-1.0)
[2020-12-27] MEDS: SODIUM BICARBONATE 650 MG TABLET PO SCH (21:38)
[2020-12-28] MEDS: HEPARIN 5,000 UNIT/1 ML VIAL SUBCUT SCH ×3 (01:10→23:53)
[2020-12-28 04:53] LABS: Basophils % 0.1 % (0.0-0.8); Eosinophils % 0.4 % (0.00-10.9); Hematocrit 24.4 VOL% (42.0-52.0); Hemoglobin 7.4 GM/DL (14.0-18.0); Immature Granulocytes % 1.1 %; Immature Granulocytes Absolute 0.09 #; Lymphocytes # 0.2 10*3/uL (1.4-4.0); Lymphocytes % 2.7 % (21.2-54.2); Mean Corpuscular HGB Conc 30.3 GM/DL (32-36); Mean Corpuscular Volume 87.8 FL (87-102); Mean Platelet Volume 12.8 FL (9.6-12.0); Monocytes % 12.6 % (1.7-12.7); Neutrophils % 83.1 % (38.7-73.9); Platelet Count 146 T/CUMM (130-400); Red Blood Count 2.78 MC/CUMM (3.8-5.5); Red Cell Distribution Width 16.4 % (9.3-17.3); White Blood Count 7.9 T/CUMM (4-12)
[2020-12-28 05:14] LABS: Eosinophils 1 % (0-10); Hypochromasia 1+; Lymphocytes 2 % (20-55); Platelet Estimate Adequate; Segmented Neutrophils 85 % (50-85); Total Cells Counted 100
[2020-12-28 05:15] LABS: Alanine Aminotransferase 9 U/L (16-61); Albumin 2.5 G/DL (3.4-5.0); Alkaline Phosphatase 73 U/L (45-117); Aspartate Amino Transferase 7 U/L (0-37); Bilirubin,Total < 0.39 MG/DL (0.2-1.0); Blood Urea Nitrogen 45 MG/DL (7-18); Calcium 7.8 MG/DL (8.5-10.1); Carbon Dioxide 15 MMOL/L (21-32); Estimated Glom Filtration Rate 20 ML/MIN; Glucose 75 MG/DL (74-106); Potassium 3.6 MMOL/L (3.5-5.1); Sodium 143 MMOL/L (136-145)
[2020-12-28] MEDS: INSULIN REGULAR 100 UNIT/ML SUBCUT SCH ×4 (07:46→21:53)
[2020-12-28] MEDS: MYCOPHENOLATE 180 MG TABLET PO SCH ×2 (09:00→21:46)
[2020-12-28] MEDS: TACROLIMUS 0.5 MG CAPSULE PO SCH ×2 (09:00→21:44)
[2020-12-28] MEDS: ASPIRIN EC 81 MG TABLET PO SCH (09:01)
[2020-12-28] MEDS: ATORVASTATIN 10 MG TABLET PO SCH (09:01)
[2020-12-28] MEDS: INSULIN GLARGINE 100 UNIT/ML SUBCUT SCH (09:01)
[2020-12-28] MEDS: FAMOTIDINE 20 MG TABLET PO SCH (09:01)
[2020-12-28] MEDS: SODIUM BICARBONATE 650 MG TABLET PO SCH ×2 (09:02→21:43)
[2020-12-28] MEDS: predniSONE 10 MG TABLET PO SCH (09:02)
[2020-12-28] MEDS: DICYCLOMINE 20 MG TABLET PO SCH ×2 (09:02→21:44)
[2020-12-28] MEDS ORDERED: EPOETIN ALFA-EPBX 10,000 UNIT/ML VIAL SUBCUT ONE (10:00)
[2020-12-28] MEDS: DEXTROSE 5% NACL 0.9% 1,000 ML IV SCH ×2 (10:35→21:57)
[2020-12-28] MEDS: MULTIVITAMIN (BEROCCA) TABLET PO SCH (12:17)
[2020-12-28] MEDS: LOPERAMIDE 2 MG CAPSULE PO PRN (12:17)
[2020-12-28] MEDS: POTASSIUM CHLORIDE RIDER 10 MEQ in PREMIX 1 EACH IV PRN (16:08)
[2020-12-29] MEDS: DEXTROSE 5% NACL 0.9% 1,000 ML IV SCH (05:06)
[2020-12-29 07:47] LABS: Eosinophils % 0.5 % (0.00-10.9); Hematocrit 24.9 VOL% (42.0-52.0); Hemoglobin 7.4 GM/DL (14.0-18.0); Immature Granulocytes % 1.6 %; Immature Granulocytes Absolute 0.09 #; Lymphocytes # 0.2 10*3/uL (1.4-4.0); Lymphocytes % 3.5 % (21.2-54.2); Mean Corpuscular HGB Conc 29.7 GM/DL (32-36); Mean Corpuscular Volume 88.3 FL (87-102); Mean Platelet Volume 11.9 FL (9.6-12.0); Monocytes % 15.3 % (1.7-12.7); Neutrophils % 79.1 % (38.7-73.9); Platelet Count 134 T/CUMM (130-400); Red Blood Count 2.82 MC/CUMM (3.8-5.5); Red Cell Distribution Width 16.6 % (9.3-17.3); White Blood Count 5.8 T/CUMM (4-12)
[2020-12-29 07:55] LABS: Potassium 4.1 MMOL/L (3.5-5.1)
[2020-12-29 08:05] LABS: Hypochromasia 1+
[2020-12-29] MEDS: INSULIN REGULAR 100 UNIT/ML SUBCUT SCH (08:24)
[2020-12-29 08:27] VITALS: BP 163/64
[2020-12-29] MEDS: LOPERAMIDE 2 MG CAPSULE PO PRN (08:27)
[2020-12-29] MEDS: SODIUM BICARBONATE 650 MG TABLET PO SCH (08:28)
[2020-12-29] MEDS: TACROLIMUS 0.5 MG CAPSULE PO SCH (08:28)
[2020-12-29] MEDS: ASPIRIN EC 81 MG TABLET PO SCH (08:28)
[2020-12-29] MEDS: DICYCLOMINE 20 MG TABLET PO SCH (08:28)
[2020-12-29] MEDS: INSULIN GLARGINE 100 UNIT/ML SUBCUT SCH (08:28)
[2020-12-29] MEDS: FAMOTIDINE 20 MG TABLET PO SCH (08:29)
[2020-12-29] MEDS: MULTIVITAMIN (BEROCCA) TABLET PO SCH (08:29)
[2020-12-29] MEDS: MYCOPHENOLATE 180 MG TABLET PO SCH (08:29)
[2020-12-29] MEDS: predniSONE 10 MG TABLET PO SCH (08:29)
[2020-12-29] MEDS: ATORVASTATIN 10 MG TABLET PO SCH (08:29)
== END 2020-12-29 13:15 | disposition home or self-care (01) | DRG 638 ==
LOC: N.ED 08:32 → N.EDINP 10:58 → SUATTDRO 10:58 → N.ICU 13:45 → N.3E 12-26 15:07
PROVIDERS: ADMIT Internal Medicine; ATTEND Internal Medicine Geriatric Medicine

== ENCOUNTER 2021-03-22 18:35 | Inpatient (IN) ==
[2021-03-23 01:28] LABS: Basophils # 0.1 10*3/uL (0.0-0.2); Basophils % 0.7 % (0.0-0.8); Eosinophils # 0.2 10*3/uL (0.0-0.87); Eosinophils % 1.3 % (0.00-10.9); Hematocrit 28.8 VOL% (42.0-52.0); Immature Granulocytes % 1.3 %; Immature Granulocytes Absolute 0.16 #; Lymphocytes # 0.5 10*3/uL (1.4-4.0); Lymphocytes % 3.6 % (21.2-54.2); Mean Corpuscular HGB Conc 31.3 GM/DL (32-36); Mean Platelet Volume 12.9 FL (9.6-12.0); Monocytes % 7.8 % (1.7-12.7); Neutrophils % 85.3 % (38.7-73.9); Platelet Count 202 T/CUMM (130-400); Red Blood Count 3.13 MC/CUMM (3.8-5.5); Red Cell Distribution Width 16.2 % (9.3-17.3); White Blood Count 12.6 T/CUMM (4-12)
[2021-03-23 01:49] LABS: Alanine Aminotransferase 27 U/L (16-61); Albumin 2.9 G/DL (3.4-5.0); Alkaline Phosphatase 159 U/L (45-117); Aspartate Amino Transferase 18 U/L (0-37); Bilirubin,Total < 0.39 MG/DL (0.2-1.0); Blood Urea Nitrogen 91 MG/DL (7-18); Carbon Dioxide 25 MMOL/L (21-32); Estimated Glom Filtration Rate 10 ML/MIN; Glucose 209 MG/DL (74-106); Osmolality,Calculated 314.3 MOS/KG (273-304); Potassium 4.3 MMOL/L (3.5-5.1); Sodium 141 MMOL/L (136-145); Total Protein 6.8 G/DL (6.4-8.2)
[2021-03-23 01:58] LABS: Calcium 5.5 MG/DL (8.5-10.1)
[2021-03-23] MEDS ORDERED: CALCIUM GLUCONATE 2,000 MG in SODIUM CHLORIDE 0.9% 100 ML IV ONE ×2 (02:07→06:40)
[2021-03-23] MEDS ORDERED: SODIUM CHLORIDE 0.9% 500 ML IV STA (02:07)
[2021-03-23 02:33] LABS: Eosinophils 2 % (0-10); Lymphocytes 3 % (20-55); Segmented Neutrophils 90 % (50-85); Total Cells Counted 100
[2021-03-23] MEDS ORDERED: CALCIUM GLUCONATE 1,000 MG/10 ML VIAL IV ONE (02:33)
[2021-03-23 02:34] LABS: Hypochromasia 2+; Platelet Estimate Normal; Schistocytes Few
[2021-03-23] MEDS ORDERED: DEXTROSE 50% 25 GM/50 ML VIAL IV PRN (03:28)
[2021-03-23] MEDS ORDERED: ACETAMINOPHEN 325 MG TABLET PO PRN (03:28)
[2021-03-23] MEDS ORDERED: hydrALAZINE 20 MG/1 ML VIAL IV PRN (03:28)
[2021-03-23] MEDS ORDERED: GLUCAGON 1 MG VIAL IM PRN (03:28)
[2021-03-23] MEDS ORDERED: MORPHINE 4 MG/1 ML VIAL IV PRN (03:28)
[2021-03-23] MEDS ORDERED: diphenhydrAMINE CAP 25 MG CAPSULE PO PRN (03:28)
[2021-03-23] MEDS ORDERED: ONDANSETRON 4 MG/2 ML VIAL IV PRN (03:28)
[2021-03-23 03:51] LABS: Bilirubin,Urine Negative (Negative); Blood, Urine Negative (Negative); Glucose,Urine (UA) Negative (Negative); Ketones,Urine Negative (Negative); Mucus,Urine Occasional /LPF (Occasional); Nitrite,Urine Negative (Negative); Protein,Urine 100 MG/DL; RBC,Urine 17 /HPF (0-4); Urine Appearance CLEAR (Clear); Urine Color Yellow (Yellow); Urine Specific Gravity 1.012 (1.001-1.035); Urine Urobilinogen < 2.0 EU/DL (0.2-1.0)
[2021-03-23] MEDS: SODIUM CHLORIDE 0.9% 1,000 ML IV SCH (06:21)
[2021-03-23 06:25] LABS: Albumin 2.5 G/DL (3.4-5.0); Bilirubin,Total 0.5 MG/DL (0.2-1.0); Osmolality,Calculated 312.1 MOS/KG (273-304); Potassium 3.9 MMOL/L (3.5-5.1); Total Protein 6.4 G/DL (6.4-8.2)
[2021-03-23 06:28] LABS: Calcium 5.2 MG/DL (8.5-10.1)
[2021-03-23] MEDS: INSULIN REGULAR 100 UNIT/ML SUBCUT SCH ×4 (09:49→20:50)
[2021-03-23] MEDS: predniSONE 10 MG TABLET PO SCH (10:33)
[2021-03-23] MEDS: azaTHIOprine 50 MG TABLET PO SCH (10:33)
[2021-03-23 11:11] LABS: Protein/Creatinine Ratio,Urine 2.2 RATIO
[2021-03-23] MEDS: amLODIPine 10 MG TABLET PO SCH (11:41)
[2021-03-23] MEDS: CALCIUM CARBONATE CHEW 500 MG TABLET PO SCH ×2 (15:53→20:49)
[2021-03-23] MEDS: FUROSEMIDE 40 MG/4 ML VIAL IV SCH (15:54)
[2021-03-23] MEDS: SODIUM BICARBONATE 650 MG TABLET PO SCH (20:49)
[2021-03-23] MEDS: ATORVASTATIN 10 MG TABLET PO SCH (20:49)
[2021-03-23] MEDS: TACROLIMUS 0.5 MG CAPSULE PO SCH (20:49)
[2021-03-23] MEDS: carvediloL 3.125 MG TABLET PO SCH (20:49)
[2021-03-23] MEDS: INSULIN GLARGINE 100 UNIT/ML SUBCUT SCH (20:50)
[2021-03-23] MEDS ORDERED: CALCIUM CARBONATE CHEW 500 MG TABLET PO SCH (21:00)
[2021-03-24] MEDS: SODIUM CHLORIDE 0.9% 1,000 ML IV SCH ×2 (04:53→05:16)
[2021-03-24 05:18] LABS: Basophils # 0.1 10*3/uL (0.0-0.2); Eosinophils # 0.3 10*3/uL (0.0-0.87); Eosinophils % 2.2 % (0.00-10.9); Hematocrit 27.5 VOL% (42.0-52.0); Hemoglobin 8.6 GM/DL (14.0-18.0); Immature Granulocytes Absolute 0.13 #; Lymphocytes # 0.4 10*3/uL (1.4-4.0); Lymphocytes % 3.4 % (21.2-54.2); Mean Corpuscular HGB Conc 31.3 GM/DL (32-36); Mean Corpuscular Volume 91.4 FL (87-102); Monocytes % 9.6 % (1.7-12.7); Neutrophils % 82.8 % (38.7-73.9); Platelet Count 185 T/CUMM (130-400); Red Blood Count 3.01 MC/CUMM (3.8-5.5); Red Cell Distribution Width 16.1 % (9.3-17.3); White Blood Count 12.5 T/CUMM (4-12)
[2021-03-24 05:43] LABS: Albumin 2.3 G/DL (3.4-5.0); Bilirubin,Total 0.5 MG/DL (0.2-1.0); Osmolality,Calculated 302.5 MOS/KG (273-304); Potassium 3.9 MMOL/L (3.5-5.1); Total Protein 6.3 G/DL (6.4-8.2)
[2021-03-24 05:45] LABS: Calcium 5.3 MG/DL (8.5-10.1)
[2021-03-24 06:15] LABS: Acanthocytes Few; Eosinophils 2 % (0-10); Hypochromasia 1+; Lymphocytes 3 % (20-55); Microcytosis 1+; Segmented Neutrophils 88 % (50-85); Total Cells Counted 100
[2021-03-24 06:16] LABS: Ovalocytes Slight; Platelet Estimate Adequate
[2021-03-24] MEDS: INSULIN REGULAR 100 UNIT/ML SUBCUT SCH ×4 (08:06→22:02)
[2021-03-24] MEDS ORDERED: CALCIUM GLUCONATE 2,000 MG in SODIUM CHLORIDE 0.9% 100 ML IV ONE (08:45)
[2021-03-24] MEDS: SODIUM BICARBONATE 650 MG TABLET PO SCH ×2 (09:29→21:36)
[2021-03-24] MEDS: TACROLIMUS 0.5 MG CAPSULE PO SCH (09:29)
[2021-03-24] MEDS: carvediloL 3.125 MG TABLET PO SCH ×2 (09:29→21:36)
[2021-03-24] MEDS: ASPIRIN EC 81 MG TABLET PO SCH (09:29)
[2021-03-24] MEDS: azaTHIOprine 50 MG TABLET PO SCH (09:29)
[2021-03-24] MEDS: predniSONE 10 MG TABLET PO SCH (09:29)
[2021-03-24] MEDS: CALCIUM CARBONATE CHEW 500 MG TABLET PO SCH ×3 (09:29→21:36)
[2021-03-24] MEDS: amLODIPine 10 MG TABLET PO SCH (09:29)
[2021-03-24] MEDS: FUROSEMIDE 40 MG/4 ML VIAL IV SCH ×2 (09:30→17:12)
[2021-03-24] MEDS: metOLazone 5 MG TABLET PO SCH (11:52)
[2021-03-24] MEDS: CALCIUM ACETATE 667 MG CAPSULE PO SCH ×2 (11:52→17:13)
[2021-03-24] MEDS: INSULIN GLARGINE 100 UNIT/ML SUBCUT SCH (21:34)
[2021-03-24] MEDS: ATORVASTATIN 10 MG TABLET PO SCH (21:36)
[2021-03-25 06:23] LABS: Basophils # 0.1 10*3/uL (0.0-0.2); Basophils % 0.9 % (0.0-0.8); Eosinophils # 0.3 10*3/uL (0.0-0.87); Eosinophils % 1.9 % (0.00-10.9); Hemoglobin 9.2 GM/DL (14.0-18.0); Immature Granulocytes % 1.7 %; Immature Granulocytes Absolute 0.25 #; Lymphocytes # 0.5 10*3/uL (1.4-4.0); Lymphocytes % 3.3 % (21.2-54.2); Mean Corpuscular HGB Conc 30.7 GM/DL (32-36); Mean Corpuscular Volume 92.9 FL (87-102); Mean Platelet Volume 12.7 FL (9.6-12.0); Monocytes % 10.1 % (1.7-12.7); Neutrophils % 82.1 % (38.7-73.9); Platelet Count 177 T/CUMM (130-400); Red Blood Count 3.23 MC/CUMM (3.8-5.5); White Blood Count 15.1 T/CUMM (4-12)
[2021-03-25 06:47] LABS: Acanthocytes Few; Band Neutrophils 1 % (0-10); Eosinophils 2 % (0-10); Hypochromasia 1+; Lymphocytes 4 % (20-55); Microcytosis 1+; Ovalocytes Slight; Segmented Neutrophils 84 % (50-85); Total Cells Counted 100
[2021-03-25 06:48] LABS: Albumin 2.5 G/DL (3.4-5.0); Bilirubin,Total 0.5 MG/DL (0.2-1.0); Calcium 5.9 MG/DL (8.5-10.1); Osmolality,Calculated 302.8 MOS/KG (273-304); Platelet Estimate Adequate; Total Protein 6.9 G/DL (6.4-8.2)
[2021-03-25] MEDS: INSULIN REGULAR 100 UNIT/ML SUBCUT SCH ×4 (08:03→20:59)
[2021-03-25] MEDS: predniSONE 10 MG TABLET PO SCH (09:09)
[2021-03-25] MEDS: ASPIRIN EC 81 MG TABLET PO SCH (09:09)
[2021-03-25] MEDS: azaTHIOprine 50 MG TABLET PO SCH (09:09)
[2021-03-25] MEDS: FUROSEMIDE 40 MG/4 ML VIAL IV SCH (09:09)
[2021-03-25] MEDS: CALCIUM ACETATE 667 MG CAPSULE PO SCH ×3 (09:09→16:01)
[2021-03-25] MEDS: carvediloL 3.125 MG TABLET PO SCH ×2 (09:09→20:58)
[2021-03-25] MEDS: amLODIPine 10 MG TABLET PO SCH (09:09)
[2021-03-25] MEDS: metOLazone 5 MG TABLET PO SCH ×2 (09:09→16:01)
[2021-03-25] MEDS: SODIUM BICARBONATE 650 MG TABLET PO SCH ×2 (09:09→20:58)
[2021-03-25] MEDS: CALCIUM CARBONATE CHEW 500 MG TABLET PO SCH ×3 (09:10→20:57)
[2021-03-25 14:18] LABS: Total Volume,Urine 200 ML (400-2000)
[2021-03-25 14:34] LABS: Total Protein 24 Hr Ur Result 960 MG/24HR (0-149.1)
[2021-03-25] MEDS: FUROSEMIDE 80 MG TABLET PO SCH (16:01)
[2021-03-25] MEDS: ATORVASTATIN 10 MG TABLET PO SCH (20:58)
[2021-03-25] MEDS: INSULIN GLARGINE 100 UNIT/ML SUBCUT SCH (20:59)
[2021-03-26] MEDS: metOLazone 5 MG TABLET PO SCH ×2 (06:08→17:53)
[2021-03-26 06:20] LABS: Basophils # 0.1 10*3/uL (0.0-0.2); Eosinophils # 0.3 10*3/uL (0.0-0.87); Eosinophils % 2.5 % (0.00-10.9); Hematocrit 26.4 VOL% (42.0-52.0); Hemoglobin 8.5 GM/DL (14.0-18.0); Immature Granulocytes % 1.2 %; Immature Granulocytes Absolute 0.16 #; Lymphocytes # 0.5 10*3/uL (1.4-4.0); Lymphocytes % 3.8 % (21.2-54.2); Mean Corpuscular HGB Conc 32.2 GM/DL (32-36); Mean Corpuscular Volume 90.7 FL (87-102); Mean Platelet Volume 12.7 FL (9.6-12.0); Monocytes % 11.8 % (1.7-12.7); Neutrophils % 79.7 % (38.7-73.9); Platelet Count 172 T/CUMM (130-400); Red Blood Count 2.91 MC/CUMM (3.8-5.5); Red Cell Distribution Width 16.1 % (9.3-17.3); White Blood Count 13.5 T/CUMM (4-12)
[2021-03-26] MEDS: INSULIN REGULAR 100 UNIT/ML SUBCUT SCH ×4 (06:36→20:32)
[2021-03-26 06:37] LABS: Alanine Aminotransferase 15 U/L (16-61); Albumin 2.3 G/DL (3.4-5.0); Alkaline Phosphatase 128 U/L (45-117); Aspartate Amino Transferase 12 U/L (0-37); Bilirubin,Total < 0.39 MG/DL (0.2-1.0); Blood Urea Nitrogen 99 MG/DL (7-18); Calcium 5.9 MG/DL (8.5-10.1); Carbon Dioxide 20 MMOL/L (21-32); Estimated Glom Filtration Rate 8 ML/MIN; Glucose 94 MG/DL (74-106); Osmolality,Calculated 303.8 MOS/KG (273-304); Potassium 4.1 MMOL/L (3.5-5.1); Sodium 137 MMOL/L (136-145); Total Protein 6.2 G/DL (6.4-8.2)
[2021-03-26 06:47] LABS: Eosinophils 2 % (0-10); Hypochromasia 1+; Lymphocytes 4 % (20-55); Microcytosis 1+; Ovalocytes Slight; Platelet Estimate Adequate; Segmented Neutrophils 88 % (50-85); Total Cells Counted 100
[2021-03-26] MEDS: CALCIUM ACETATE 667 MG CAPSULE PO SCH ×3 (08:00→18:01)
[2021-03-26] MEDS: CALCIUM CARBONATE CHEW 500 MG TABLET PO SCH ×3 (09:00→20:30)
[2021-03-26] MEDS: SODIUM BICARBONATE 650 MG TABLET PO SCH ×2 (09:00→20:30)
[2021-03-26] MEDS: carvediloL 3.125 MG TABLET PO SCH ×2 (09:17→20:31)
[2021-03-26] MEDS: amLODIPine 10 MG TABLET PO SCH (09:17)
[2021-03-26] MEDS ORDERED: BUPIVACAINE MPF 0.25% 30 ML VIAL ONE (10:15)
[2021-03-26] MEDS ORDERED: HEPARIN 5,000 UNIT/1 ML VIAL ONE (10:16)
[2021-03-26] MEDS ORDERED: LIDOCAINE 1%/EPI INJ 20 ML VIAL ONE (10:16)
[2021-03-26] MEDS ORDERED: ETOMIDATE 40 MG/20 ML VIAL IV ONE (10:36)
[2021-03-26] MEDS ORDERED: LIDOCAINE 2% 5 ML VIAL ONE (10:36)
[2021-03-26] MEDS ORDERED: propofoL 200 MG/20 ML VIAL IV ONE (10:36)
[2021-03-26] MEDS ORDERED: fentaNYL 100 MCG/2 ML VIAL ONE (10:37)
[2021-03-26] MEDS ORDERED: MIDAZOLAM 2 MG/2 ML VIAL ONE (10:37)
[2021-03-26] MEDS ORDERED: KETAMINE 500 MG/10 ML VIAL ONE (11:11)
[2021-03-26] MEDS ORDERED: SODIUM CHLORIDE 0.9% 100 ML IV ONE (11:13)
[2021-03-26] MEDS ORDERED: SODIUM CHLORIDE 0.9% 250 ML IV SCH (11:30)
[2021-03-26] MEDS ORDERED: DEXTROSE 50% 25 GM/50 ML VIAL IV PRN (13:09)
[2021-03-26] MEDS ORDERED: GLUCAGON 1 MG VIAL IM PRN (13:09)
[2021-03-26] MEDS ORDERED: methylPREDNISolone SOD SUC 125 MG/2 ML VIAL IV ONE (15:01)
[2021-03-26] MEDS ORDERED: HEPARIN 10,000 UNIT/10 ML VIAL IV PRN (16:00)
[2021-03-26] MEDS: FUROSEMIDE 80 MG TABLET PO SCH (17:53)
[2021-03-26] MEDS: azaTHIOprine 50 MG TABLET PO SCH (18:01)
[2021-03-26] MEDS: predniSONE 10 MG TABLET PO SCH (18:01)
[2021-03-26] MEDS: ASPIRIN EC 81 MG TABLET PO SCH (18:01)
[2021-03-26] MEDS: TACROLIMUS 0.5 MG CAPSULE PO SCH (20:30)
[2021-03-26] MEDS: ATORVASTATIN 10 MG TABLET PO SCH (20:31)
[2021-03-26] MEDS: INSULIN GLARGINE 100 UNIT/ML SUBCUT SCH (20:33)
[2021-03-27 05:38] LABS: INR 1.1; PT Patient Result 11.9 SECS (10.5-12.0); Partial Thromboplastin Time 31.9 SECS (23.9-33.8)
[2021-03-27 05:50] LABS: Albumin 2.4 G/DL (3.4-5.0); Bilirubin,Total 0.7 MG/DL (0.2-1.0); Calcium 6.8 MG/DL (8.5-10.1); Osmolality,Calculated 297.1 MOS/KG (273-304); Potassium 4.9 MMOL/L (3.5-5.1); Total Protein 7.1 G/DL (6.4-8.2)
[2021-03-27] MEDS: INSULIN REGULAR 100 UNIT/ML SUBCUT SCH ×3 (07:30→17:24)
[2021-03-27] MEDS: CALCIUM ACETATE 667 MG CAPSULE PO SCH ×3 (08:00→17:06)
[2021-03-27] MEDS: CALCIUM CARBONATE CHEW 500 MG TABLET PO SCH ×2 (09:00→14:35)
[2021-03-27 09:31] LABS: Hepatitis B Core IgM Quant 0.05 Index; Hepatitis B Surface Ag Quant < 0.10 Index; Hepatitis B Surface Ag Result Non-Reactive (NonReactive); Hepatitis C Virus Ab Quant 0.08 Index; Hepatitis C Virus Ab Result Non-Reactive (NonReactive)
[2021-03-27] MEDS ORDERED: methylPREDNISolone SOD SUC 125 MG/2 ML VIAL IV ONE (12:00)
[2021-03-27] MEDS: ASPIRIN EC 81 MG TABLET PO SCH (12:30)
[2021-03-27] MEDS: carvediloL 3.125 MG TABLET PO SCH (12:30)
[2021-03-27] MEDS: azaTHIOprine 50 MG TABLET PO SCH (12:31)
[2021-03-27] MEDS: predniSONE 10 MG TABLET PO SCH (12:31)
[2021-03-27] MEDS: TACROLIMUS 0.5 MG CAPSULE PO SCH (12:31)
[2021-03-27] MEDS: amLODIPine 10 MG TABLET PO SCH (12:31)
[2021-03-27] MEDS: SODIUM BICARBONATE 650 MG TABLET PO SCH (12:32)
[2021-03-27 16:04] VITALS: BP 148/85
== END 2021-03-27 17:48 | disposition hospice, home (50) | DRG 674 ==
LOC: N.EDINP 18:35 → N.ED 18:35 → N.3E 03-23 04:02 → SUATTDRO 03-24 15:28
PROVIDERS: ADMIT Internal Medicine; ATTEND Hospitalist